=== PATIENT | female | born 1955 | race Two or more races ===

== ENCOUNTER 2024-08-25 22:22 | Emergency (ER) | payer MEDICARE, MEDICAID, SELFPAY ==
[2024-08-25 22:23] VITALS: BMI 25.4
[2024-08-25 22:41] VITALS: BP 142/82; PULSE 75; RESP 20; TEMP 37.4; O2SAT 95
--- NOTE | 2024-08-25 22:48 | XR_ITS ---
Examination: PA chest single view Technique: Upright PA chest single view Exam date and time: 03/25/2024 1054 hrs. Comparison September 26, 2011 Indications: Coughing shortness of breath beginning one week ago. Findings: Accentuation bronchovascular markings No lobar pneumonia Minimal prominence left ventricle Impression: Bronchitis pattern
--- NOTE | 2024-08-25 22:49 | EKG_ITS ---
[facility] Test Date: 2024-08-25 Pat Name: AMANDA GOMEZ Department: Room: - Gender: Female [employer] Operator: : 1955 Requested By: Hosea Sams Order Number: [id number] Reading MD: Hosea Sams Measurements Intervals [place] Rate: 71 P: 63 DE: 134 QRS: -14 QRSD: 75 T: -2 QT: 353 QTc: 385 Interpretive Statements SINUS RHYTHM ST DEVIATION AND MODERATE T-WAVE ABNORMALITY, CONSIDER ANTERIOR ISCHEMIA [-0.1+ mV T WAVE IN V3/V4] No previous ECG available for comparison /[id number]/[email or web address]/[id number].pdf
--- NOTE | 2024-08-25 22:49 | PD.EDRME ---
Rapid Medical Screening Exam [facility] Arrival date/time: 08/25/24 22:22 68F with history of HTN, hypothyroidism, and asthma (does not smoke) presents to ED with 1 week of cough and SOB. Chief Complaint: Asthma Vital signs: Vital Signs Temperature 99.4 F 08/25/24 22:41 Pulse Rate 75 08/25/24 22:41 Respiratory Rate 20 08/25/24 22:41 Blood Pressure 142/82 H 08/25/24 22:41 Pulse Oximetry (%) 95 08/25/24 22:41 Oxygen Delivery Method Room Air 08/25/24 22:41
[2024-08-25] MEDS: DEXAMETHASONE SOD PHOS INJ 10 MG/ML VIAL PO (23:11)
[2024-08-25 23:33] LABS: Basophils % (Auto) 0 % (0-2.5); Eosinophils % (Auto) 1 % (0-10); Hematocrit 36.6 % (36.0-46.0); Immature Granulocytes % (Auto) 0 % (0-0); Lymphocytes # (Auto) 1.4 Thou/mm3 (1.0-4.8); Lymphocytes % (Auto) 34 % (10-50); Mean Corpuscular HGB Conc 32.8 g/dl (31.0-37.0); Mean Corpuscular Hemoglobin 29.8 pg (25.0-35.0); Mean Corpuscular Volume 91 fL (80-100); Monocytes # (Auto) 0.6 Thou/mm3 (0.0-0.8); Monocytes % (Auto) 15 % (0-12); Neutrophils % (Auto) 50 % (37-80); Nucleated Red Blood Cell % 0 /100 WBC (0); Platelet Count 178 Thou/mm3 (140-440); RDW Standard Deviation 42.6 fL (36.4-46.3); Red Blood Count 4.03 Miln/mm3 (4.00-5.20); White Blood Count 4.1 Thou/mm3 (3.6-11.0)
[2024-08-26] LABS: Alanine Aminotransferase 18 U/L (10-49); Albumin, Serum 4.3 gm/dL (3.4-4.8); Albumin/Globulin Ratio 1.7 (1.2-2.2); Alkaline Phosphatase 117 U/L (46-116); Anion Gap 7 (7-16); Aspartate Amino Transferase 26 U/L (0-34); BUN/Creatinine Ratio 20 Ratio (12-20); Bilirubin,Total 0.6 mg/dL (0.3-1.2); Blood Urea Nitrogen 14 mg/dL (9-23); Calcium 9.8 mg/dL (8.3-10.6); Calcium (Corrected) 9.8 mg/dL (8.5-10.1); Carbon Dioxide 27.2 mMol/L (20.0-31.0); Chloride 108 mMol/L (98-107); Creatinine (Component) 0.7 mg/dL (0.6-1.3); Estimated Creatinine Clearance 67.1 mL/min (>60); Globulin 2.6 gm/dL (2.3-3.5); Glucose 107 mg/dL (74-106); Osmolality,Calculated 283 (275-295); Potassium 3.7 mMol/L (3.4-5.1); Procalcitonin 0.04 ng/ml (0.0-0.49); Sodium 142 mMol/L (136-145); Total Protein 6.9 gm/dL (5.7-8.2); Troponin I < 0.002 ng/mL (0.0-0.045); eGFR > 60 See Note
[2024-08-26 00:09] VITALS: BP 143/73; PULSE 75; RESP 18; TEMP 37.7; O2SAT 96
--- NOTE | 2024-08-26 00:38 | PD.EDURI ---
Upper Respiratory Inf. RME/HPI General Chief Complaint: Asthma Stated Complaint: ASTHMA EXACERBATION Time Seen by Provider: 08/26/24 00:37 Arrival date/time: 08/25/24 22:22 68F with history of HTN, hypothyroidism, and asthma (does not smoke) presents to ED with 1 week of cough and SOB. Limitations: no limitations RME / HPI RME / HPI Narrative: 08/25/24 22:22 68F with history of HTN, hypothyroidism, and asthma (does not smoke) presents to ED with 1 week of cough and SOB. Related Data Previous Rx's ?Medication ?Instructions ?Recorded prednisone 20 mg tablet 20 mg PO BID 3 days #6 tabs 08/26/24 Allergies Allergy/AdvReac Type Severity Reaction Status Date / Time NKA* Allergy Uncoded 08/25/24 22:26 Review of Systems Review of Systems Systems Reviewed: All systems reviewed, normal except as documented Constitutional Constitutional: Reports system reviewed and no additional complaints, except as documented, Denies fever(s) and Denies headache(s) ENT Ears, Nose, Mouth, and Throat: Denies disequilibrium and Denies headache(s) Cardiovascular Cardiovascular: Reports system reviewed and no additional complaints, except as documented, Denies chest pain and Reports dyspnea Respiratory Respiratory: Reports system reviewed and no additional complaints, except as documented, Reports as per HPI, Reports cough and Reports dyspnea Gastrointestinal Gastrointestinal: Reports system reviewed and no additional complaints, except as documented, Denies abdominal pain, Denies nausea and Denies vomiting Neurologic Neurologic: Reports system reviewed and no additional complaints, except as documented, Denies confusion, Denies disequilibrium and Denies headache(s) Psychiatric Psychiatric: Denies confusion Past Medical History Social History SMOKING STATUS: Never smoker ED Exam General Limitations: Present no limitations General appearance: Present alert and in no apparent distress Head Head exam: Present atraumatic Eye Eye exam: Present normal appearance, PERRL and EOMI ENT ENT exam: Present normal exam, normal oropharynx and mucous membranes moist Neck Neck exam: Present normal inspection, full ROM and trachea midline Chest Chest inspection: Present normal inspection and symmetric chest wall rise Respiratory Respiratory exam: Present normal lung sounds bilaterally and prolonged expiratory phase Cardiovascular Cardiovascular exam: Present regular rate, normal rhythm and normal heart sounds Abdominal Exam Abdominal exam: Present soft and normal bowel sounds Extremities Exam Extremities exam: Present normal inspection and full ROM Back Exam Back exam: Present normal inspection and full ROM Neurological Exam Neurological exam: Present alert, oriented X3 and CN II-XII intact Psychiatric Psychiatric exam: Present normal affect and normal mood Skin Skin exam: Present warm, dry, intact and normal color Course Quality Measures none Orders Category Date Time Status Bedside Influenza A&B Antigen Test NOW Care 08/25/24 22:44 Completed EKG (ED ONLY) *Do not use* NOW Care 08/25/24 22:49 Completed EKG (ED Only) Stat Exams 08/25/24 22:49 Draft XR chest 1V portable Stat Exams 08/25/24 22:48 Completed CBC Stat Lab 08/25/24 23:25 Completed Comprehensive Metabolic Panel Stat Lab 08/25/24 23:25 Completed Procalcitonin Stat Lab 08/25/24 23:25 Completed Troponin I Stat Lab 08/25/24 23:25 Completed Dexamethasone Inj [Decadron Inj] Med 08/25/24 22:48 Discontinued 10 mg PO X1 ONE Vital Signs Vital signs: Vital Signs Temperature 99.4 F 08/25/24 22:41 Pulse Rate 75 08/25/24 22:41 Respiratory Rate 20 08/25/24 22:41 Blood Pressure 142/82 H 08/25/24 22:41 Pulse Oximetry (%) 95 08/25/24 22:41 Oxygen Delivery Method Room Air 08/25/24 22:41 O2 at 95% on RA and WNLs Upper Respiratory Infection MDM Narrative MDM Narrative:: 68F with history of HTN, hypothyroidism, and asthma (does not smoke) presents to ED with 1 week of cough and SOB. Physical exam reveals clear ENT and lungs. Prolonged expiration. Patient is afebrile, calm, and alert. EKG is NSR. CXR normal. No leukocytosis. CMP unremarkable. Normal Trop. Flu A+. Significant improvement with oral steroids. >72 hours since onset, so no Tamiflu. Patient data External records reviewed:: [facility] previous records Clinical information provided by:: patient Social determinants that could affect healthcare access:: none Patient has the following chronic illnesses:: HTN, hypothyroidism, and asthma How is presenting disease/condition affected by chronic disease/condition?: exacerbated by Evaluation data The following diagnostics were reviewed and interpreted by me:: lab results, radiology exam(s) and EKG tracing(s) Lab and/or radiology exams considered but not ordered:: ordered Interpretation Summary: above Medications / Prescriptions Medications or Prescriptions considered but not ordered:: ordered Medication administrations:: Medication Administration History Discontinued Medications Dexamethasone Sodium Phosphate (Dexamethasone Sod Phos Inj 10 Mg/Ml Vial) 10 mg PO X1 ONE Stop: 08/25/24 22:49 Last Admin: 08/25/24 23:11 Dose: 10 mg Documented By: WARREN above Consultations Consultation(s) initiated? (list below): No Diagnosis Upper Respiratory Differential Diagnosis: upper respiratory infection, croup, otitis media, sinusitis, viral infection, bronchitis, influenza, pharyngitis and other (flu A and asthma exacerbation) Most likely diagnosis given after review of the tests above:: flu A and asthma exacerbation Admission Indicated Admission indicated?: not indicated Admission Request Was there a request for admission?: No Disposition Plan Disposition Plan: Discharge Discharge Attestation Discharge Attestation: The patient and all family members were given an opportunity to ask questions and understood the discharge instructions. Discharge instructions specifically effects, indications for sooner follow up or return to the emergency department, and the expected course of current diagnosis. Patient condition: Stable Discharge Plan Plan Patient Disposition: HOME (Self Care) Disposition Comment: Stable Prescriptions/Referrals Prescriptions/Med Rec: New prednisone 20 mg tablet 20 mg PO BID 3 Days Qty: 6 0RF Referrals: No Primary/Family,Physician [Primary Care Provider] - In 1 week Problem List Clinical Impression: Asthma with acute exacerbation, Influenza A Patient/Caregiver Discharge Instructions Education Materials: ED Influenza (Adult) Additional Instructions: Please follow-up with PCP within 24-48 hours and return immediately if symptoms worsen. Use inhaler as needed. Print Language: Japanese Stand Alone Forms: Patient Portal Info Letter BAKARI/SALMA Supervising Physician BAKARI/SALMA Supervising Physician: Dr. Gates
== END 2024-08-26 00:53 | disposition home or self-care (01) ==
PROVIDERS: Physician Assistant; Emergency Provider Emergency Medicine
DX: J45.901 Unspecified asthma with (acute) exacerbation (principal); J10.1 Influenza due to other identified influenza virus with other respiratory manifestations
CPT/HCPCS: 36415; 71045; 80053; 84145; 84484; 85025; 87400; 93005; 99283; J1100